=== PATIENT | male | born 1935 | race Caucasian/White ===

== ENCOUNTER → 2017-11-15 | Outpatient (CLI) | payer OTHER ==
[~2017-11-15] MED LIST: BIFI1CAP PO; LORA0.5T2 PO; LORA1TAB3 PO; MULT-1258 PO; PANT40TA PO; POTA15TA11 PO; SERT100T PO; SERT50TA PO; TYL3B PO
== END | disposition home or self-care (01) ==
LOC: RAH 10:46
PROVIDERS: ATTEND Urology
DX: K80.20 Calculus of gallbladder without cholecystitis without obstruction (principal); N20.0 Calculus of kidney
CPT/HCPCS: 74176

== ENCOUNTER 2017-12-01 09:40 | Inpatient (IN) | payer OTHER ==
[~2017-12-01] VITALS: Ht 193 cm; Wt 93.3 kg
[~2017-12-01 09:40] MED LIST changes: -PANT40TA PO; -TYL3B PO
[2017-12-01] MEDS ORDERED: ONDANSETRON HCL 4 MG/2 ML VIAL ONE ×2 (10:09→12:27)
[2017-12-01] MEDS ORDERED: SODIUM CHLORIDE 0.9% 500ML 500 ML IV ONE (10:09)
[2017-12-01 10:10] LABS: BASOPHILS % (AUTO) 0.5 % (0.0-5.0); EOSINOPHILS % (AUTO) 0.8 % (0.0-8.0); HEMATOCRIT 33.1 % (42-54); LYMPHOCYTES % (AUTO) 44.3 % (21.0-51.0); MEAN CORPUSCULAR HEMOGLOBIN 18.8 pg (27.0-33.0); MEAN CORPUSCULAR HGB CONC 29.6 g/dL (32.0-36.0); MEAN CORPUSCULAR VOLUME 63.3 fL (79-99); MONOCYTES % (AUTO) 4.6 % (3.0-13.0); NEUTROPHILS % (AUTO) 49.8 % (40.0-77.0); PLATELET COUNT (AUTO) 187 K/uL (130-400); RED BLOOD CELL COUNT(AUTO) 5.23 MIL/uL (4.50-6.20); RED CELL DISTRIBUTION WIDTH 18.3 % (11.0-15.5); WHITE BLOOD COUNT (AUTO) 8.9 K/uL (4.8-10.8)
[2017-12-01 10:23] LABS: INR 0.97 (0.85-1.15); PROTHROMBIN TIME 10.2 SEC (9.6-11.6)
[2017-12-01 10:24] LABS: CREATININE 1.5 mg/dL (0.5-1.5); POTASSIUM 4.4 mmol/L (3.5-5.1)
[2017-12-01 10:28] LABS: ALBUMIN 3.8 g/dL (3.5-5.0); BILIRUBIN,DIRECT 0.2 mg/dL (0.0-0.3); BILIRUBIN,TOTAL 0.7 mg/dL (0.2-1.0); TOTAL PROTEIN, SERUM 6.5 g/dL (6.0-8.3)
[2017-12-01] MEDS ORDERED: MORPHINE SULFATE 4 MG/1ML SYG ONE (12:27)
[2017-12-01 12:50] LABS: APPEARANCE,URINE Clear (CLEAR); BILIRUBIN,URINE Negative (NEGATIVE); COLOR,URINE Yellow (YELLOW); GLUCOSE, URINE (UA) Negative (NEGATIVE); KETONES,URINE Negative (NEGATIVE); LEUKOCYTE ESTERASE ,URINE Negative (NEGATIVE); NITRATE,URINE Negative (NEGATIVE); OCCULT BLOOD,URINE Negative (NEGATIVE); PROTEIN,URINE Negative (NEGATIVE)
[2017-12-01] MEDS ORDERED: ACETAMINOPHEN 325 MG TAB PO PRN (15:30)
[2017-12-01] MEDS ORDERED: ONDANSETRON HCL 4 MG/2 ML VIAL IVP PRN (15:30)
[2017-12-01] MEDS ORDERED: MORPHINE SULFATE 2 MG/ML 1ML SYG IM PRN (15:30)
[2017-12-01] MEDS ORDERED: HYDRALAZINE HCL 20 MG/ML VIAL IV PRN (15:30)
[2017-12-01 18:41] VITALS: BP 133/66
[2017-12-01 19:59] VITALS: BP 117/72
[2017-12-01] MEDS: SODIUM CHLORIDE 0.9% 1000ML 1,000 ML IV SCH (20:47)
[2017-12-01] MEDS: ENOXAPARIN SODIUM 40 MG/0.4 ML SYRINGE SQ SCH (20:48)
[2017-12-01] MEDS: MORPHINE SULFATE 2 MG/ML 1ML SYG IV PRN (20:56)
[2017-12-01 23:51] VITALS: BP 110/62
[2017-12-02 04:00] VITALS: BP 104/62
[2017-12-02] MEDS: SODIUM CHLORIDE 0.9% 1000ML 1,000 ML IV SCH ×2 (05:40→21:29)
[2017-12-02 06:56] LABS: BASOPHILS % (AUTO) 0.2 % (0.0-5.0); EOSINOPHILS % (AUTO) 0.7 % (0.0-8.0); HEMATOCRIT 29.2 % (42-54); LYMPHOCYTES % (AUTO) 58.2 % (21.0-51.0); MEAN CORPUSCULAR HGB CONC 29.6 g/dL (32.0-36.0); MEAN CORPUSCULAR VOLUME 64.2 fL (79-99); MONOCYTES % (AUTO) 5.7 % (3.0-13.0); NEUTROPHILS % (AUTO) 35.2 % (40.0-77.0); PLATELET COUNT (AUTO) 166 K/uL (130-400); RED BLOOD CELL COUNT(AUTO) 4.55 MIL/uL (4.50-6.20); WHITE BLOOD COUNT (AUTO) 9.6 K/uL (4.8-10.8)
[2017-12-02 07:15] LABS: CREATININE 1.3 mg/dL (0.5-1.5); POTASSIUM 4.3 mmol/L (3.5-5.1)
[2017-12-02 08:00] VITALS: BP 126/70
[2017-12-02] MEDS: PANTOPRAZOLE SODIUM 40 MG TABLET.DR PO SCH (10:46)
[2017-12-02] MEDS: ENOXAPARIN SODIUM 40 MG/0.4 ML SYRINGE SQ SCH (10:46)
[2017-12-02 12:04] VITALS: BP 123/74
[2017-12-02 16:23] VITALS: BP 122/55
[2017-12-02 20:00] VITALS: BP 140/72
[2017-12-02] MEDS: MORPHINE SULFATE 2 MG/ML 1ML SYG IV PRN (21:15)
[2017-12-03] VITALS (28 sets, daily range): BP systolic 111–143; BP diastolic 51–86
[2017-12-03 04:41] LABS: BASOPHILS % (AUTO) 0.4 % (0.0-5.0); EOSINOPHILS % (AUTO) 1.1 % (0.0-8.0); HEMATOCRIT 27.8 % (42-54); LYMPHOCYTES % (AUTO) 62.8 % (21.0-51.0); MEAN CORPUSCULAR HEMOGLOBIN 19.3 pg (27.0-33.0); MEAN CORPUSCULAR HGB CONC 30.4 g/dL (32.0-36.0); MEAN CORPUSCULAR VOLUME 63.6 fL (79-99); MONOCYTES % (AUTO) 5.8 % (3.0-13.0); NEUTROPHILS % (AUTO) 29.9 % (40.0-77.0); PLATELET COUNT (AUTO) 163 K/uL (130-400); RED BLOOD CELL COUNT(AUTO) 4.37 MIL/uL (4.50-6.20); RED CELL DISTRIBUTION WIDTH 19.2 % (11.0-15.5); WHITE BLOOD COUNT (AUTO) 7.9 K/uL (4.8-10.8)
[2017-12-03 05:11] LABS: ALBUMIN 3.1 g/dL (3.5-5.0); BILIRUBIN,DIRECT 0.2 mg/dL (0.0-0.3); BILIRUBIN,TOTAL 0.6 mg/dL (0.2-1.0); CREATININE 1.2 mg/dL (0.5-1.5); POTASSIUM 4.2 mmol/L (3.5-5.1); TOTAL PROTEIN, SERUM 5.4 g/dL (6.0-8.3)
[2017-12-03] MEDS: ENOXAPARIN SODIUM 40 MG/0.4 ML SYRINGE SQ SCH (09:00)
[2017-12-03] MEDS ORDERED: LACTATED RINGERS 1000ML 1,000 ML IV ONE (13:07)
[2017-12-03] MEDS ORDERED: DEXAMETHASONE SOD PHOSPHATE 10MG/ML 1ML VIAL ONE (13:26)
[2017-12-03] MEDS ORDERED: NEOSTIGMINE 5MG/5ML SYR IV ONE (13:26)
[2017-12-03] MEDS ORDERED: GLYCOPYRROLATE 0.2 MG/ML 5 ML VIAL ONE (13:26)
[2017-12-03] MEDS ORDERED: LIDOCAINE PF 2% 5ML ABBOJECT ONE (13:26)
[2017-12-03] MEDS ORDERED: SUCCINYLCHOLINE 200MG/10ML SYR ONE ×2 (13:26→14:12)
[2017-12-03] MEDS ORDERED: ONDANSETRON HCL 4 MG/2 ML VIAL ONE (13:26)
[2017-12-03] MEDS ORDERED: PROPOFOL 10 MG/ML 20ML VIAL IV ONE (13:27)
[2017-12-03] MEDS ORDERED: MIDAZOLAM HCL 1 MG/ML 2ML VIAL ONE (13:27)
[2017-12-03] MEDS ORDERED: FENTANYL CITRATE PF 50 MCG/1 ML 2ML VIAL ONE ×2 (13:27→14:08)
[2017-12-03] MEDS ORDERED: ROCURONIUM BROMIDE 10MG/1ML 5ML VL ONE ×2 (13:29→14:12)
[2017-12-03] MEDS ORDERED: LIDOCAINE HCL 4% LTA SOL 4 ML VIAL ONE (14:12)
[2017-12-03] MEDS ORDERED: METOCLOPRAMIDE 10 MG/2 ML VIAL ONE (14:12)
[2017-12-03] MEDS ORDERED: HEPARIN SODIUM 1000UNIT/ML 10ML VIAL ONE (14:19)
[2017-12-03] MEDS ORDERED: ACETAMINOPHEN-CODEINE 300/30MG TAB PO PRN ×2 (15:00)
[2017-12-03] MEDS: PANTOPRAZOLE SODIUM 40 MG TABLET.DR PO SCH (16:33)
[2017-12-03] MEDS: SODIUM CHLORIDE 0.9% 1000ML 1,000 ML IV SCH (16:34)
[2017-12-03] MEDS: MORPHINE SULFATE 2 MG/ML 1ML SYG IV PRN (23:16)
[2017-12-04] VITALS: BP 108/58
[2017-12-04 04:00] VITALS: BP 104/60
[2017-12-04 05:10] LABS: BASOPHILS % (AUTO) 0.6 % (0.0-5.0); EOSINOPHILS % (AUTO) 0.1 % (0.0-8.0); LYMPHOCYTES % (AUTO) 33.7 % (21.0-51.0); MEAN CORPUSCULAR HGB CONC 29.7 g/dL (32.0-36.0); MEAN CORPUSCULAR VOLUME 63.9 fL (79-99); MONOCYTES % (AUTO) 7.7 % (3.0-13.0); NEUTROPHILS % (AUTO) 57.9 % (40.0-77.0); PLATELET COUNT (AUTO) 164 K/uL (130-400); RED BLOOD CELL COUNT(AUTO) 4.54 MIL/uL (4.50-6.20); RED CELL DISTRIBUTION WIDTH 20.1 % (11.0-15.5); WHITE BLOOD COUNT (AUTO) 8.6 K/uL (4.8-10.8)
[2017-12-04 05:30] LABS: CREATININE 1.2 mg/dL (0.5-1.5); POTASSIUM 4.4 mmol/L (3.5-5.1)
[2017-12-04 07:47] VITALS: BP 97/57
[2017-12-04] MEDS: PANTOPRAZOLE SODIUM 40 MG TABLET.DR PO SCH (09:18)
[2017-12-04] MEDS: ENOXAPARIN SODIUM 40 MG/0.4 ML SYRINGE SQ SCH (09:19)
[2017-12-04 11:43] VITALS: BP 109/61
[2017-12-04] MEDS: SODIUM CHLORIDE 0.9% 1000ML 1,000 ML IV SCH (12:30)
[2017-12-04] MEDS ORDERED: TYL3B PO (13:06)
[2017-12-04] MEDS ORDERED: PANT40TA PO (13:06)
== END 2017-12-04 15:50 | disposition home or self-care (01) | DRG 419 ==
LOC: EDH 09:40 → EDHIP 15:30 → 3DH 16:35
PROVIDERS: ADMIT Family Medicine; ATTEND Family Medicine
PROC: 0FT44ZZ Resection of Gallbladder, Percutaneous Endoscopic Approach (ICD-10-PCS; principal; 2017-12-03 13:50)
DX: K80.10 Calculus of gallbladder with chronic cholecystitis without obstruction (principal); N20.0 Calculus of kidney; F32.9 Major depressive disorder, single episode, unspecified; F41.9 Anxiety disorder, unspecified; Z72.0 Tobacco use; Z87.442 Personal history of urinary calculi
CPT/HCPCS: 36415; 76705; 78227; 80048; 80053; 80076; 81003; 83690; 84484; 85025; 85610; 85730; 88304; 93005; A9537; J0330; J1100; J1644; J1650; J2001; J2250; J2270; J2405; J2704; J2710; J2765; J3010; J3490; J7030; J7040; J7120

== ENCOUNTER 2018-12-29 18:30 | Inpatient (IN) | payer OTHER ==
[~2018-12-29] VITALS: Ht 193 cm; Wt 85.7 kg
[~2018-12-29 18:30] MED LIST changes: +ASPI-555 PO; -BIFI1CAP PO; +LEVO500T2 PO; -LORA1TAB3 PO; -MULT-1258 PO; +MULT-729 PO; +OMEP1CAP2 PO; +SACC250C8 PO; -SERT50TA PO; +TRAM50TA4 PO
[2018-12-29 19:28] LABS: APPEARANCE,URINE Clear (CLEAR); BILIRUBIN,URINE Negative (NEGATIVE); COLOR,URINE Dark Yellow (YELLOW); GLUCOSE, URINE (UA) Negative (NEGATIVE); KETONES,URINE Negative (NEGATIVE); LEUKOCYTE ESTERASE ,URINE Negative (NEGATIVE); NITRATE,URINE Negative (NEGATIVE); OCCULT BLOOD,URINE Negative (NEGATIVE); PROTEIN,URINE POS 1+ mg/dL (NEGATIVE)
[2018-12-29 19:30] LABS: BASOPHILS % (AUTO) 0.1 % (0.0-5.0); HEMATOCRIT 39.4 % (42-54); LYMPHOCYTES % (AUTO) 74.6 % (21.0-51.0); MEAN CORPUSCULAR HEMOGLOBIN 23.3 pg (27.0-33.0); MEAN CORPUSCULAR HGB CONC 31.3 g/dL (32.0-36.0); MEAN CORPUSCULAR VOLUME 74.3 fL (79-99); MONOCYTES % (AUTO) 20.5 % (3.0-13.0); NEUTROPHILS % (AUTO) 4.8 % (40.0-77.0); NUCLEATED RED BLOOD CELLS 0.3 % (0.0-0.19); PLATELET COUNT (AUTO) 101 K/uL (130-400); RED CELL DISTRIBUTION WIDTH 16.2 % (11.0-15.5); WHITE BLOOD COUNT (AUTO) 4.7 K/uL (4.8-10.8)
[2018-12-29 19:39] LABS: BACTERIA,URINE Few /HPF (None Seen); RBC,URINE 0-1 /HPF (0-1); WBC,URINE 0-1 /HPF (0-1)
[2018-12-29 19:40] LABS: SQUAMOUS EPITHELIAL CELL,UR Few /HPF (0-2)
[2018-12-29 19:41] LABS: MUCUS,URINE Few LPF (None Seen); TRANSITIONAL EPI CELLS,URINE Rare /HPF (None Seen)
[2018-12-29 19:44] LABS: CREATININE 1.6 mg/dL (0.5-1.5); POTASSIUM 4.3 mmol/L (3.5-5.1)
[2018-12-29 19:50] LABS: ALBUMIN 2.9 g/dL (3.5-5.0); BILIRUBIN,TOTAL 0.6 mg/dL (0.2-1.0)
[2018-12-29] MEDS ORDERED: MAG HYDROX/AL HYDROX/SIMETH ES 30 ML SUSP UDCUP ONE (20:40)
[2018-12-29] MEDS ORDERED: LIDOCAINE HCL 2% VISCOUS 15 ML UDCUP ONE (20:40)
[2018-12-29] MEDS ORDERED: SODIUM CHLORIDE 0.9% 1000ML 1,000 ML IV ONE (20:40)
[2018-12-29] MEDS: SODIUM CHLORIDE 0.9% 1000ML 1,000 ML IV SCH (20:53)
[2018-12-29] MEDS ORDERED: ACETAMINOPHEN 325 MG TAB PO PRN ×2 (21:00)
[2018-12-29] MEDS ORDERED: FAMOTIDINE/PF 20 MG/2 ML VIAL IV SCH (21:00)
[2018-12-29] MEDS ORDERED: ONDANSETRON HCL 4 MG/2 ML VIAL IV PRN (21:00)
[2018-12-29] MEDS ORDERED: GUAIFENESIN-CODEINE 5 ML SYRUP PO PRN (21:15)
[2018-12-29 22:30] VITALS: BP 109/50
[2018-12-29] MEDS: CEFTRIAXONE SODIUM 1 GM IVP SCH (22:44)
[2018-12-29] MEDS: FLUCONAZOLE 200 MG/NS 100 ML 100 ML IV SCH (22:44)
[2018-12-29] MEDS: ENOXAPARIN SODIUM 40 MG/0.4 ML SYRINGE SQ SCH (22:45)
[2018-12-29] MEDS: [UNRECOGNIZED DRUG - MIXTURE] PO PRN ×2 (22:45)
[2018-12-29] MEDS ORDERED: POTA10TA19 PO (23:12)
[2018-12-29] MEDS ORDERED: SERT100T12 PO (23:12)
[2018-12-29] MEDS ORDERED: MULT-1192 PO (23:12)
[2018-12-29] MEDS ORDERED: LORA0.5T2 PO (23:12)
[2018-12-29] MEDS ORDERED: VIT B12 PO (23:12)
[2018-12-29] MEDS ORDERED: ACET125T2 PO (23:12)
[2018-12-29] MEDS ORDERED: FE F1CAP9 PO (23:12)
[2018-12-29] MEDS ORDERED: LEVO250T59 PO (23:12)
[2018-12-30 00:17] VITALS: BP 107/47
[2018-12-30 04:26] VITALS: BP 109/71
[2018-12-30] MEDS: SODIUM CHLORIDE 0.9% 1000ML 1,000 ML IV SCH ×2 (06:53→17:39)
[2018-12-30 08:00] VITALS: BP 113/65
[2018-12-30] MEDS ORDERED: FAMOTIDINE/PF 20 MG/2 ML VIAL IV SCH (09:00)
[2018-12-30] MEDS ORDERED: PHARMACY COMMUNICATION MISC SCH (09:30)
[2018-12-30] MEDS: ENOXAPARIN SODIUM 40 MG/0.4 ML SYRINGE SQ SCH ×2 (09:40→19:56)
[2018-12-30] MEDS: [UNRECOGNIZED DRUG - MIXTURE] PO PRN ×6 (10:45→18:54)
[2018-12-30 12:00] VITALS: BP 119/74
[2018-12-30] MEDS: POTASSIUM CITRATE 10 MEQ PO SCH ×2 (14:00→17:00)
[2018-12-30 16:00] VITALS: BP 110/61
--- NOTE | 2018-12-30 16:15 | NUR ---
SYLVIA MET W /SPOUSE AT BEDSIDE, AAOX3, LIVES W [facility] [place] WHO WILL PROVIDE TRANSPORT, HAS ROLLING WALKER WHICH HE USES AOBUT 50% OF THE TIME , NO STAIRS AT HOME SPOUSE DRIVES, NO HHH/PROV, PT STATES PLAN IS FOR HOME , JUSTIN TO FOLLOW Addendum: 12/30/18 at 1723 by EDWARD KAUFFMAN RN CM Amended: Links added.
--- NOTE | 2018-12-30 19:52 | NUR ---
cpap has been connected and ready to use. patient will connect himself. Addendum: 12/30/18 at 1953 by AMADOU POTTS RT RT Amended: Links added.
[2018-12-30] MEDS: CEFTRIAXONE SODIUM 1 GM IVP SCH (19:54)
[2018-12-30] MEDS: AcetaZOLAMIDE 250 MG TAB PO SCH (19:56)
[2018-12-30] MEDS: LORAZEPAM 0.5 MG TABLET PO SCH (19:56)
[2018-12-30 20:14] VITALS: BP 100/50
[2018-12-30] MEDS: FLUCONAZOLE 200 MG/NS 100 ML 100 ML IV SCH (21:50)
[2018-12-31 00:31] VITALS: BP 113/46
[2018-12-31] MEDS: SODIUM CHLORIDE 0.9% 1000ML 1,000 ML IV SCH ×2 (02:48→20:32)
[2018-12-31 03:57] VITALS: BP 111/66
[2018-12-31 04:20] LABS: BASOPHILS % (AUTO) 0.2 % (0.0-5.0); EOSINOPHILS % (AUTO) 0.2 % (0.0-8.0); HEMATOCRIT 31.3 % (42-54); LYMPHOCYTES % (AUTO) 79.9 % (21.0-51.0); MEAN CORPUSCULAR HEMOGLOBIN 23.4 pg (27.0-33.0); MEAN CORPUSCULAR HGB CONC 31.9 g/dL (32.0-36.0); MEAN CORPUSCULAR VOLUME 73.4 fL (79-99); MONOCYTES % (AUTO) 14.4 % (3.0-13.0); NEUTROPHILS % (AUTO) 5.3 % (40.0-77.0); NUCLEATED RED BLOOD CELLS 0.1 % (0.0-0.19); PLATELET COUNT (AUTO) 107 K/uL (130-400); RED BLOOD CELL COUNT(AUTO) 4.27 MIL/uL (4.50-6.20); RED CELL DISTRIBUTION WIDTH 16.1 % (11.0-15.5); WHITE BLOOD COUNT (AUTO) 5.2 K/uL (4.8-10.8)
[2018-12-31 04:35] LABS: CREATININE 1.2 mg/dL (0.5-1.5); POTASSIUM 3.7 mmol/L (3.5-5.1)
[2018-12-31 08:00] VITALS: BP 115/69
[2018-12-31] MEDS: ENOXAPARIN SODIUM 40 MG/0.4 ML SYRINGE SQ SCH ×2 (08:34→09:00)
--- NOTE | 2018-12-31 09:36 | NUR ---
[facility] JUSTICE, AWARE OF PT'S PLATELET COUNT HOLD LOVENOX FOR TODAY
[2018-12-31] MEDS: FAMOTIDINE/PF 20 MG/2 ML VIAL IV SCH ×2 (09:37→20:32)
[2018-12-31] MEDS: SERTRALINE HCL 50 MG TABLET PO SCH (09:38)
[2018-12-31] MEDS: DOCUSATE SODIUM 100 MG CAP PO SCH ×2 (09:38→20:32)
[2018-12-31] MEDS: FE FUMARATE/FA/MV, MIN COMB#15 1 TAB PO SCH (09:38)
[2018-12-31] MEDS: AcetaZOLAMIDE 250 MG TAB PO SCH ×2 (09:38→20:32)
[2018-12-31] MEDS: CYANOCOBALAMIN (VITAMIN B-12) 1,000 MCG TABLET PO SCH (09:39)
[2018-12-31] MEDS: MULTIVITAMIN TABLET PO SCH (09:39)
[2018-12-31] MEDS: POTASSIUM CITRATE 10 MEQ PO SCH ×3 (09:40→17:00)
[2018-12-31] MEDS: [UNRECOGNIZED DRUG - MIXTURE] PO PRN ×6 (09:43→20:39)
[2018-12-31 11:00] VITALS: BP 127/68
[2018-12-31 16:00] VITALS: BP 114/66
[2018-12-31 20:00] VITALS: BP 103/40
[2018-12-31] MEDS: LORAZEPAM 0.5 MG TABLET PO SCH (20:32)
[2018-12-31] MEDS: CEFTRIAXONE SODIUM 1 GM IVP SCH (20:32)
[2018-12-31] MEDS: FLUCONAZOLE 200 MG/NS 100 ML 100 ML IV SCH (22:03)
[2019-01-01] VITALS: BP 113/70
[2019-01-01 04:00] VITALS: BP 103/46
[2019-01-01] MEDS: SODIUM CHLORIDE 0.9% 1000ML 1,000 ML IV SCH (04:57)
[2019-01-01 05:24] LABS: BASOPHILS % (AUTO) 0.1 % (0.0-5.0); EOSINOPHILS % (AUTO) 0.3 % (0.0-8.0); HEMATOCRIT 33.3 % (42-54); LYMPHOCYTES % (AUTO) 72.7 % (21.0-51.0); MEAN CORPUSCULAR HEMOGLOBIN 22.9 pg (27.0-33.0); MEAN CORPUSCULAR HGB CONC 30.2 g/dL (32.0-36.0); MEAN CORPUSCULAR VOLUME 75.8 fL (79-99); MONOCYTES % (AUTO) 19.8 % (3.0-13.0); NEUTROPHILS % (AUTO) 7.1 % (40.0-77.0); NUCLEATED RED BLOOD CELLS 0.2 % (0.0-0.19); PLATELET COUNT (AUTO) 125 K/uL (130-400); RED CELL DISTRIBUTION WIDTH 16.8 % (11.0-15.5); WHITE BLOOD COUNT (AUTO) 4.1 K/uL (4.8-10.8)
[2019-01-01 05:27] LABS: CREATININE 1.1 mg/dL (0.5-1.5); POTASSIUM 3.9 mmol/L (3.5-5.1)
[2019-01-01 07:00] VITALS: BP 109/66
[2019-01-01] MEDS: SERTRALINE HCL 50 MG TABLET PO SCH (08:38)
[2019-01-01] MEDS: FE FUMARATE/FA/MV, MIN COMB#15 1 TAB PO SCH (08:38)
[2019-01-01] MEDS: [UNRECOGNIZED DRUG - MIXTURE] PO PRN ×6 (08:38→21:37)
[2019-01-01] MEDS: MULTIVITAMIN TABLET PO SCH (08:38)
[2019-01-01] MEDS: DOCUSATE SODIUM 100 MG CAP PO SCH ×2 (08:38→21:25)
[2019-01-01] MEDS: CYANOCOBALAMIN (VITAMIN B-12) 1,000 MCG TABLET PO SCH (08:38)
[2019-01-01] MEDS: AcetaZOLAMIDE 250 MG TAB PO SCH ×2 (08:39→21:25)
[2019-01-01] MEDS: POTASSIUM CITRATE 10 MEQ PO SCH ×3 (08:39→17:00)
[2019-01-01] MEDS: FAMOTIDINE/PF 20 MG/2 ML VIAL IV SCH ×2 (08:39→21:25)
[2019-01-01] MEDS: ENOXAPARIN SODIUM 40 MG/0.4 ML SYRINGE SQ SCH (08:44)
[2019-01-01 11:00] VITALS: BP 116/48
[2019-01-01] MEDS: NYSTATIN 100000 UNIT/ML 5ML UDCUP PO SCH ×3 (15:13→21:26)
[2019-01-01 15:52] VITALS: BP 111/57
[2019-01-01 20:00] VITALS: BP 107/64
[2019-01-01] MEDS: FLUCONAZOLE 200 MG/NS 100 ML 100 ML IV SCH (21:26)
[2019-01-01] MEDS: CEFTRIAXONE SODIUM 1 GM IVP SCH (21:26)
[2019-01-02] VITALS: BP 104/50
[2019-01-02 04:00] VITALS: BP 106/48
[2019-01-02 05:40] LABS: BASOPHILS % (AUTO) 0.1 % (0.0-5.0); EOSINOPHILS % (AUTO) 0.3 % (0.0-8.0); HEMATOCRIT 32.4 % (42-54); LYMPHOCYTES % (AUTO) 73.2 % (21.0-51.0); MEAN CORPUSCULAR HEMOGLOBIN 23.2 pg (27.0-33.0); MEAN CORPUSCULAR HGB CONC 31.5 g/dL (32.0-36.0); MEAN CORPUSCULAR VOLUME 73.7 fL (79-99); MONOCYTES % (AUTO) 20.1 % (3.0-13.0); NEUTROPHILS % (AUTO) 6.3 % (40.0-77.0); NUCLEATED RED BLOOD CELLS 0.2 % (0.0-0.19); PLATELET COUNT (AUTO) 121 K/uL (130-400); RED CELL DISTRIBUTION WIDTH 16.7 % (11.0-15.5); WHITE BLOOD COUNT (AUTO) 5.1 K/uL (4.8-10.8)
[2019-01-02 05:48] LABS: CREATININE 1.2 mg/dL (0.5-1.5)
[2019-01-02] MEDS: POTASSIUM CITRATE 10 MEQ PO SCH ×3 (08:00→17:00)
[2019-01-02 08:25] VITALS: BP 108/62
[2019-01-02] MEDS: FAMOTIDINE/PF 20 MG/2 ML VIAL IV SCH (09:00)
[2019-01-02] MEDS: MULTIVITAMIN TABLET PO SCH (09:09)
[2019-01-02] MEDS: FE FUMARATE/FA/MV, MIN COMB#15 1 TAB PO SCH (09:09)
[2019-01-02] MEDS: DOCUSATE SODIUM 100 MG CAP PO SCH (09:09)
[2019-01-02] MEDS: SERTRALINE HCL 50 MG TABLET PO SCH (09:10)
[2019-01-02] MEDS: ENOXAPARIN SODIUM 40 MG/0.4 ML SYRINGE SQ SCH (09:10)
[2019-01-02] MEDS: CYANOCOBALAMIN (VITAMIN B-12) 1,000 MCG TABLET PO SCH (09:13)
[2019-01-02] MEDS: AcetaZOLAMIDE 250 MG TAB PO SCH (09:13)
[2019-01-02] MEDS: NYSTATIN 100000 UNIT/ML 5ML UDCUP PO SCH ×3 (09:14→17:00)
[2019-01-02 11:47] VITALS: BP 104/57
[2019-01-02] MEDS ORDERED: FLUC100T PO ×2 (15:37→15:41)
--- NOTE | 2019-01-02 16:19 | NUR ---
Several attempts made to schedule follow up appt with Dr. Oliveira by Makenzie Soto RN and community outreach worker Makenzie Hutchison, but no answer. Pt to be instructed to call for appt to be seen within 3 days. [facility] is walk in clinic. Addendum: 01/02/19 at 1621 by GRABIEL SOTO RN RN Discharge paperwork completed in computer, printed. Endorsed to Primary nurse Gerson Persaud LVN who will complete bedside education with pt.
[2019-01-02 16:56] VITALS: BP 111/72
--- NOTE | 2019-01-02 17:00 | NUR ---
DISCHARGE INSTRUCTIONS GIVEN. PATIENT INSTRUCTED TO MAKE APPT WITH PCP AND CONTINUE SAME MEDICATIONS PRESCRIBED. ALL QUESTIONS ANSWERED.
== END 2019-01-02 17:15 | disposition home or self-care (01) | DRG 158 ==
LOC: EDH 18:30 → 3CH 20:05
PROVIDERS: ADMIT Internal Medicine; ATTEND Internal Medicine
DX: B37.0 Candidal stomatitis (principal); D61.818 Other pancytopenia; N28.9 Disorder of kidney and ureter, unspecified; J02.9 Acute pharyngitis, unspecified; R47.02 Dysphasia; Z96.653 Presence of artificial knee joint, bilateral; Z96.642 Presence of left artificial hip joint; F41.8 Other specified anxiety disorders; Z98.42 Cataract extraction status, left eye; Z98.41 Cataract extraction status, right eye; Z83.3 Family history of diabetes mellitus; Z82.0 Family history of epilepsy and other diseases of the nervous system; Z82.3 Family history of stroke; Z82.5 Family history of asthma and other chronic lower respiratory diseases; Z82.49 Family history of ischemic heart disease and other diseases of the circulatory system
CPT/HCPCS: 36415; 71045; 80048; 80053; 81001; 83605; 85025; 86308; 86701; 87040; 87390; 87804; 87880; 93005; G0378; J0696; J1450; J1650; J3490; J7030

== ENCOUNTER → 2019-01-16 | Outpatient (CLI) | payer OTHER ==
[~2019-01-16] MED LIST changes: -ASPI-555 PO; +FE F1CAP9 PO; +IOHEXOL 350 MG/ML 100ML INFUS..BTL IV ONE; -LEVO500T2 PO; +MULT-1192 PO; -MULT-729 PO; -OMEP1CAP2 PO; +POTA10TA19 PO; -POTA15TA11 PO; -SACC250C8 PO; -SERT100T PO; +SERT100T12 PO; -TRAM50TA4 PO; +VIT B12 PO
== END | disposition home or self-care (01) ==
LOC: RAH 07:42
PROVIDERS: ATTEND Family Medicine
DX: R05 Cough (principal); K76.89 Other specified diseases of liver; R16.1 Splenomegaly, not elsewhere classified; N28.1 Cyst of kidney, acquired
CPT/HCPCS: 71275; Q9967 ×2

== ENCOUNTER 2019-01-25 08:14 | Day surgery (SDC) | payer OTHER ==
[2019-01-25] VITALS (7 sets, daily range): BP systolic 96–102; BP diastolic 51–63
[~2019-01-25 08:14] MED LIST changes: -IOHEXOL 350 MG/ML 100ML INFUS..BTL IV ONE
[2019-01-25 09:03] LABS: BASOPHILS % (AUTO) 0.8 % (0.0-5.0); EOSINOPHILS % (AUTO) 0.4 % (0.0-8.0); HEMATOCRIT 38.1 % (42-54); LYMPHOCYTES % (AUTO) 38.1 % (21.0-51.0); MEAN CORPUSCULAR HEMOGLOBIN 22.9 pg (27.0-33.0); MEAN CORPUSCULAR HGB CONC 31.6 g/dL (32.0-36.0); MEAN CORPUSCULAR VOLUME 72.6 fL (79-99); MONOCYTES % (AUTO) 6.2 % (3.0-13.0); NEUTROPHILS % (AUTO) 54.5 % (40.0-77.0); NUCLEATED RED BLOOD CELLS 0.1 % (0.0-0.19); PLATELET COUNT (AUTO) 159 K/uL (130-400); RED BLOOD CELL COUNT(AUTO) 5.25 MIL/uL (4.50-6.20); RED CELL DISTRIBUTION WIDTH 17.6 % (11.0-15.5); WHITE BLOOD COUNT (AUTO) 10.8 K/uL (4.8-10.8)
[2019-01-25 09:08] LABS: CREATININE 1.2 mg/dL (0.5-1.5); POTASSIUM 4.4 mmol/L (3.5-5.1)
[2019-01-25 09:09] LABS: PARTIAL THROMBOPLASTIN TIME 28.3 SEC (26.3-35.5); PROTHROMBIN TIME 10.5 SEC (9.6-11.6)
[2019-01-25 09:13] LABS: BILIRUBIN,TOTAL 0.6 mg/dL (0.2-1.0); TOTAL PROTEIN, SERUM 6.1 g/dL (6.0-8.3)
[2019-01-25] MEDS ORDERED: SODIUM CHLORIDE 0.9% 1000ML 1,000 ML IV ONE (10:11)
--- NOTE | 2019-01-25 11:25 | NUR ---
REPORT/HANDOFF REPORT RECEIVED FROM JOEL ALMANZAR RN USING SBAR. PATIENT CURRENTLY IN PROCEDURE.
[2019-01-25] MEDS ORDERED: FENTANYL CITRATE PF 50 MCG/1 ML 2ML VIAL ONE (11:27)
[2019-01-25] MEDS ORDERED: LIDOCAINE HCL 1% 20 ML VIAL ONE (11:27)
[2019-01-25] MEDS ORDERED: MIDAZOLAM HCL 1 MG/ML 2ML VIAL ONE (11:27)
--- NOTE | 2019-01-25 12:55 | NUR ---
PATIENT BACK PATIENT BROUGHT BACK FROM RADIOLOGY BY LASHANDA BRIONES. PATIENT AAOX3, RESPIRATIONS UNLABORED, DENIES ANY PAIN AT THIS TIME. BANDAID TO RUQ LATERAL SIDE IS DRY AND INTACT. PATIENT'S AT BEDSIDE. SIDERAILS UPX2, BED IN LOWEST POSITION, CALL BRADLEY IN REACH.
--- NOTE | 2019-01-25 13:10 | NUR ---
SITE ASSESSMENT BANDAID TO RUQ LATERAL SIDE, NO DRAINAGE OR BLEEDING NOTED. BANDAID DRY AND INTACT.
--- NOTE | 2019-01-25 13:25 | NUR ---
SITE ASSESSMENT BANDAID TO RUQ LATERAL SIDE, NO DRAINAGE OR BLEEDING NOTED. BANDAID DRY AND INTACT.
--- NOTE | 2019-01-25 13:40 | NUR ---
SITE ASSESSMENT BANDAID TO RUQ LATERAL SIDE, NO DRAINAGE OR BLEEDING NOTED. BANDAID DRY AND INTACT.
--- NOTE | 2019-01-25 14:10 | NUR ---
SITE ASSESSMENT BANDAID TO RUQ LATERAL SIDE, NO DRAINAGE OR BLEEDING NOTED. BANDAID DRY AND INTACT.
--- NOTE | 2019-01-25 14:40 | NUR ---
SITE ASSESSMENT BANDAID TO RUQ LATERAL SIDE, NO DRAINAGE OR BLEEDING NOTED. BANDAID DRY AND INTACT.
--- NOTE | 2019-01-25 15:40 | NUR ---
SITE ASSESSMENT BANDAID TO RUQ LATERAL SIDE, NO DRAINAGE OR BLEEDING NOTED. BANDAID DRY AND INTACT.
--- NOTE | 2019-01-25 16:20 | NUR ---
DISCHARGED DISCHARGE INSTRUCTIONS PROVIDED TO PATIENT AND PATIENT'S SPOUSE. POST PROCEDURE S/S TO MONITOR FOR WERE EXPLAINED AND PATIENT'S VERBALIZED UNDERSTANDING. ALL QUESTIONS/CONCERNS ADDRESSED. PATIENT DISCHARGED FROM HOSPITAL VIA WHEELCHAIR AND TAKEN TO PRIVATE VEHICLE.
== END 2019-01-25 16:20 ==
LOC: DAH 08:14
PROVIDERS: ATTEND Family Medicine
DX: C22.7 Other specified carcinomas of liver (principal); F32.9 Major depressive disorder, single episode, unspecified; E78.5 Hyperlipidemia, unspecified; G47.33 Obstructive sleep apnea (adult) (pediatric); Z90.49 Acquired absence of other specified parts of digestive tract; Z98.890 Other specified postprocedural states; Z79.899 Other long term (current) drug therapy; Z87.440 Personal history of urinary (tract) infections; Z96.642 Presence of left artificial hip joint; Z96.653 Presence of artificial knee joint, bilateral; Z80.41 Family history of malignant neoplasm of ovary; Z80.42 Family history of malignant neoplasm of prostate; Z87.891 Personal history of nicotine dependence
CPT/HCPCS: 36415; 47000; 76942; 80053; 85025; 85610; 85730; 87071; 87205; 88108; 88305; 88307; A4215; A4216; A4221; A4222; A4223 ×3; A4606; C2615; J2250; J3010; J7030